=== PATIENT | male | born 1955 | race Caucasian/White ===

== ENCOUNTER 2017-02-02 15:00 | Emergency (ER) | payer MEDICAID ==
[~2017-02-02] VITALS: Ht 180.3 cm; Wt 107.0 kg
[~2017-02-02 15:00] MED LIST: ALBU0.086 INH; ALBU6.7H INH; ALPR.25 PO; DUONI NEB; PERC10TA27 PO; PRED10PA PO; ZITH250T PO
[2017-02-02 15:07] VITALS: BP 155/91; PULSE 80; RESP 18; TEMP 99.2; O2SAT 96
[2017-02-02] MEDS ORDERED: TYLETAB34 PO (15:28)
[2017-02-02] MEDS ORDERED: SPIRCAP INH (15:46)
[2017-02-02] MEDS ORDERED: IPRASOL INH (15:46)
[2017-02-02] MEDS ORDERED: IBUP800T23 PO (15:46)
[2017-02-02] MEDS ORDERED: FLUTI44I INH (15:46)
[2017-02-02] MEDS ORDERED: PERC10TA27 PO (15:46)
[2017-02-02] MEDS ORDERED: AMLO5TAB2 PO (15:46)
[2017-02-02] MEDS ORDERED: PRED20 PO (15:46)
[2017-02-02] MEDS ORDERED: ALBU.5I NEB (15:46)
[2017-02-02] MEDS ORDERED: DIAZ5 PO (15:46)
[2017-02-02] MEDS ORDERED: POTA10CA PO (15:46)
[2017-02-02] MEDS ORDERED: CYCL1TAB29 PO (15:46)
[2017-02-02] MEDS ORDERED: ALPR.5 PO (15:46)
[2017-02-02] MEDS ORDERED: HYDR25TA5 PO (15:46)
--- NOTE | 2017-02-02 15:47 | PD ---
HPI Chief Complaint: Pain: Acute or Chronic Time Seen by Provider: 15:17 Travel History International Travel<30 days: No Contact w/Intl Traveler<30days: No Traveled to known affect area: No History of Present Illness HPI This patient complains of pain in his left foot. Severity is moderate. Duration is 3 weeks. No injury. He has no idea why his foot pain. Worse with ambulating so he has been using crutches. He saw his primary physician for this yesterday and no plan was made according to the patient. He went to the ER week ago and had negative x-rays of it. He denies fever. No alleviating factors. No Exacerbating factors other than weightbearing PFSH Past Medical History Hx Anticoagulant Therapy: No Arthritis: Yes Asthma: Yes Blood Disorders: No Anxiety: Yes Cancer: No Cardiovascular Problems: Yes (CHF, A-Fib) Chemotherapy: No COPD: Yes Cerebrovascular Accident: No Coronary Artery Disease: Yes Diabetes: No Diminished Hearing: No Endocrine: No Gastrointestinal Disorders: No Genitourinary: No Hypertension: Yes Musculoskeletal: Yes (BACK PAIN AND LEFT ANKLE) Neurologic: No Psychiatric: No Reproductive: No Respiratory: Yes (COPD) Immunizations Current: Yes Sleep Apnea: Yes Tetanus Vaccination: < 5 Years Influenza Vaccination: No ?: Not Past Surgical History Hysterectomy: No Other Surgery: Yes (removal of cyst on back) Social History Alcohol Use: Yes (occas. beer) Tobacco Use: Yes (1&1/2 ppd) Substance Use: No Allergies-Medications (Allergen,Severity, Reaction): Coded Allergies: penicillin G (Unverified Allergy, Mild, HIVES, 12/28/16) methylprednisolone (Unverified Adverse Reaction, Unknown, NAUSEA/VOMITING , 12/28/16) Reported Meds & Prescriptions Reported Meds & Active Scripts Active Tylenol-Codeine #3 (Acetaminophen-Codeine) 300-30 mg Tab 1 Tab PO Q6H PRN Sterapred Ds (Prednisone) 10 Mg Sam 10 Mg PO DIRECTED Resp: Albuterol/Ipratropium 2.5 Mg/0.5 Mg (Albuterol/Ipratropium) 1 Amp Nebu 1 Ampule NEB Q4HR NEB PRN Zithromax Z-Sam (Azithromycin) 250 Mg Tab 250 Mg PO DIRECTED 500 MG (2 TABLETS) PO ON DAY 1, THEN 250 MG (1 TABLET) PO ON DAYS 2 TO 5. Proventil Ud 0.083% (2.5 Mg/3 Ml) (Albuterol Sulfate) 2.5 Mg/3 Ml Inha 2.5 Mg INH Q4 Proventil Hfa (Albuterol Sulfate) 6.7 Gm Aero 2 Puff INH Q4H PRN * SHAKE WELL BEFORE USE * Reported Xanax 0.25 Mg (Alprazolam) Alprazolam 0.25 mg Tab 1 Tab PO Q6H PRN Percocet 10-325 mg (Oxycodone-Acetaminophen 10-325 mg) Oxycodone 10/325 Acetaminophen Tab 1 Tab PO Q6H Review of Systems General / Constitutional: No: Fever Eyes: No: Visual changes HENT: No: Headaches Cardiovascular: Positive: Edema, No: Chest Pain or Discomfort Respiratory: No: Shortness of Breath Gastrointestinal: No: Abdominal Pain Genitourinary: No: Dysuria Musculoskeletal: Positive: Edema, Pain Skin: No Rash Neurologic: No: Weakness Psychiatric: No: Depression Endocrine: No: Polydipsia Hematologic/Lymphatic: No: Easy Bruising Physical Exam Narrative GENERAL: Well-nourished, well-developed patient with left foot pain. SKIN: Focused skin assessment reveals no rash and nodules. Skin is Warm and dry. HEAD: Atraumatic. Normocephalic. EYES: Pupils equal and round. No scleral icterus. No injection or drainage. ENT: No nasal bleeding or discharge. Mucous membranes pink and moist. NECK: Trachea midline. No JVD. CARDIOVASCULAR: Regular rate and rhythm. No murmur appreciated. RESPIRATORY: No accessory muscle use. Clear to auscultation. Breath sounds equal bilaterally. GASTROINTESTINAL: Abdomen soft, non-tender, nondistended. Hepatic and splenic margins not palpable. MUSCULOSKELETAL: No obvious deformities. No clubbing. No cyanosis. Trace symmetric edema of the feet and ankles bilaterally. Dorsum of the left foot is tender but there is no bruising or warmth or erythema. No fluctuance or drainage. NEUROLOGICAL: Awake and alert. No obvious cranial nerve deficits. Motor grossly within normal limits. Normal speech. PSYCHIATRIC: Appropriate mood and affect; insight and judgment normal. Data Data Last Documented VS Vital Signs Date Time Temp Pulse Resp B/P (MAP) Pulse Ox O2 Delivery O2 Flow Rate FiO2 02/02/17 15:25 16 02/02/17 15:07 99.2 80 155/91 (592) 95 [facility] Medical Decision Making Medical Screen Exam Complete: Yes Emergency Medical Condition: Yes Medical Record Reviewed: Yes Differential Diagnosis Occult fracture, gout, osteomyelitis Narrative Course I have reviewed the patient's electronic medical record. Patient had an ER visit and negative left foot x-rays Etiology of his foot pain is unclear. I don't see any objective signs of infection or inflammation. There is mild symmetric edema. No signs of acute ischemia Patient is requesting MRI of the foot. I have ordered an outpatient MRI of the left foot at [facility] and requests the results be faxed to the office of his primary physician Dr. Lan. He is advised to discuss this with his physician. He will continue to nonweight bear I wrote him some Tylenol 3 to use as needed for symptom relief Diagnosis Primary Impression: Pain in left foot Additional Impression: Leg edema Additional Instructions: The patient was advised to follow up with their physician and return if they worsen. The patient was warned about potential sedation for the medications they will receive on prescription. Obtain outpatient MRI of the left foot as instructed. I have ordered this on the form I gave you. Med/Other Pt SpecificInfo: Prescription(s) given Scripts Acetaminophen-Codeine (Tylenol-Codeine #3) 300-30 mg Tab 1 TAB PO Q6H Y for PAIN, #20 TAB 0 Refills Prov: Moses Shahid MD 02/02/17 Disposition: 01 DISCHARGE HOME Condition: Stable Moses Shahid MD Feb 02, 2017 15:47
[2017-02-02] MEDS ORDERED: ALBU6.7H INH (15:48)
== END 2017-02-02 16:09 | disposition home or self-care (01) ==
LOC: PHED 15:00
DX: M79.672 Pain in left foot (principal); F17.200 Nicotine dependence, unspecified, uncomplicated; J44.9 Chronic obstructive pulmonary disease, unspecified
CPT/HCPCS: 99283